=== PATIENT | female | born 1985 | race Caucasian/White ===

== ENCOUNTER 2018-05-13 11:28 | Outpatient (CLI) | payer OTHER | END 2018-05-13 12:35 | disposition home or self-care (01) | LOC: M LDO 11:28 | DX: Z34.83 Encounter for supervision of other normal pregnancy, third trimester (principal); Z3A.39 39 weeks gestation of pregnancy | CPT/HCPCS: 59025 ==

== ENCOUNTER 2018-05-24 07:36 | Inpatient (IN) | payer OTHER ==
[2018-05-24 09:10] LABS: HEMATOCRIT 37.1 % (36.0-47.0); HEMOGLOBIN 12.4 g/dl (12.0-15.5); MEAN CORPUSCULAR HEMOGLOBIN 29.1 pg (27.0-33.0); MEAN CORPUSCULAR HGB CONC 33.4 g/dl (32.0-36.5); MEAN CORPUSCULAR VOLUME 87.1 fl (80.0-96.0); PLATELET COUNT, AUTOMATED 224 10^3/uL (150-450); RED BLOOD COUNT 4.26 10^6/uL (4.00-5.40); RED CELL DISTRIBUTION WIDTH 13.3 % (11.5-14.5); WHITE BLOOD COUNT 15.2 10^3/uL (4.0-10.0)
[2018-05-24 09:17] LABS: AMPHETAMINES URINE REFLEX NEGATIVE (NEGATIVE); BARBITURATES URINE REFLEX NEGATIVE (NEGATIVE); BENZODIAZEPINES URINE REFLEX NEGATIVE (NEGATIVE); CANNABINOIDS URINE REFLEX NEGATIVE (NEGATIVE); COCAINE METABOLITE URINE REFLE NEGATIVE (NEGATIVE); METHADONE URINE REFLEX NEGATIVE (NEGATIVE); OPIATES URINE REFLEX NEGATIVE (NEGATIVE); PHENCYCLIDINE URINE REFLEX NEGATIVE (NEGATIVE)
[2018-05-24] MEDS: LR 1,000 ML IV ×3 (10:37→20:32)
[2018-05-24] MEDS: OXYTOCIN DRIP 30 UNITS in APPROPRIATE DILUENT 1 EA IV (10:42)
[2018-05-25] MEDS ORDERED: FENTANYL 2MCG/ML ROPIVACAINE 0.2% IN 0.9% NACL 100ML IVBAG As Ordered (00:22)
[2018-05-25] MEDS ORDERED: EPIDURAL COMMENT XX (02:45)
[2018-05-25] MEDS ORDERED: LACTATED RINGER'S 1000 ML IV (02:45)
[2018-05-25] MEDS ORDERED: ONDANSETRON 4MG/2ML VIAL (J2405) IV ×2 (02:45→09:30)
[2018-05-25] MEDS ORDERED: EPIDURAL/PCA KEYS XX (02:45)
[2018-05-25] MEDS ORDERED: diphenhydrAMINE INJ 50MG/ML VIAL (J1200) IV (02:45)
[2018-05-25] MEDS ORDERED: ePHEDrine SULFATE 25 MG/5 ML(5MG/ML) SYRINGE IV (02:45)
[2018-05-25] MEDS ORDERED: NALOXONE INJ 0.4 MG/1 ML VIAL (J2310) IV (02:45)
[2018-05-25] MEDS ORDERED: REFRIGERATOR IV KEYS XX (02:45)
[2018-05-25] MEDS: LR 1,000 ML IV (05:58)
[2018-05-25] MEDS: FENTANYL/ROPIVACAINE/NACL BAG 100 ML EPIDURAL (08:59)
[2018-05-25] MEDS: OXYTOCIN DRIP 30 UNITS in APPROPRIATE DILUENT 1 EA IV (09:24)
[2018-05-25] MEDS: miSOPROStol 200 MCG TAB (S0191) PR (09:30)
[2018-05-25] MEDS ORDERED: MOM 30ML SUSPENSION UDC PO (09:30)
[2018-05-25] MEDS ORDERED: DIBUCAINE 1% OINTMENT 30GM TOP (09:30)
[2018-05-25] MEDS ORDERED: METHYLERGONOVINE MALEATE 0.2 MG TAB PO (09:30)
[2018-05-25] MEDS ORDERED: DOCUSATE SODIUM 100 MG CAP PO (09:30)
[2018-05-25] MEDS ORDERED: MEASLES,MUMPS,RUBELLA VACCINE INJ (MMR-II) (90707) SC (09:30)
[2018-05-25] MEDS: OXYTOCIN INJ 10 UNITS/ML VIAL (J2590) IV (09:30)
[2018-05-25] MEDS ORDERED: ceFAZolin 2 GM/D5W 50 ML IV BAG (J0690 PER 500MG) As Ordered (09:47)
[2018-05-25] MEDS: IBUPROFEN 800 MG TAB PO (20:51)
[2018-05-26 07:05] LABS: HEMATOCRIT 28.7 % (36.0-47.0); MEAN CORPUSCULAR HEMOGLOBIN 29.6 pg (27.0-33.0); MEAN CORPUSCULAR HGB CONC 33.4 g/dl (32.0-36.5); MEAN CORPUSCULAR VOLUME 88.6 fl (80.0-96.0); PLATELET COUNT, AUTOMATED 195 10^3/uL (150-450); RED BLOOD COUNT 3.24 10^6/uL (4.00-5.40); RED CELL DISTRIBUTION WIDTH 13.7 % (11.5-14.5); WHITE BLOOD COUNT 20.2 10^3/uL (4.0-10.0)
[2018-05-26 07:08] LABS: HEMOGLOBIN 9.6 g/dl (12.0-15.5)
[2018-05-26] MEDS: ACETAMINOPHEN 500 MG TAB PO (08:22)
[2018-05-26] MEDS: PRENATAL VITAMINS CHEWABLE TABLET PO (08:22)
== END 2018-05-26 18:17 | disposition home or self-care (01) | DRG 807 ==
LOC: M LDI 07:36 → M OBS 05-25 12:23
PROVIDERS: Midwife
PROC: 10D17Z9 Manual Extraction of Products of Conception, Retained, Via Natural or Artificial Opening (ICD-10-PCS; 2018-05-25 09:55)
PROC: 10E0XZZ Delivery of Products of Conception, External Approach (ICD-10-PCS; principal; 2018-05-25 10:32)
PROC: 3E033VJ Introduction of Other Hormone into Peripheral Vein, Percutaneous Approach (ICD-10-PCS; 2018-05-25 10:32)
PROC: 10907ZC Drainage of Amniotic Fluid, Therapeutic from Products of Conception, Via Natural or Artificial Opening (ICD-10-PCS; 2018-05-25 10:32)
DX: O48.0 Post-term pregnancy (principal); Z37.0 Single live birth; Z3A.41 41 weeks gestation of pregnancy; O73.0 Retained placenta without hemorrhage

== ENCOUNTER → 2018-05-24 | Outpatient (CLI) | payer OTHER ==
[~2018-05-24] MED LIST: CETI5TA PO; COLA100C5 PO; DIBU1OIN TOP; IBUP-1114 PO; LIDOCAINE PRES-FREE 2% 10ML AMP As Ordered ONE; LR 1,000 ML IV SCH; MAPA500T17 PO; MIDAZOLAM INJ 5 MG/ML VIAL (J2250) As Ordered ONE; ONDANSETRON 4MG/2ML VIAL (J2405) As Ordered ONE; ONDANSETRON 4MG/2ML VIAL (J2405) IV PRN; OXYTOCIN 30 UNITS IN 0.9% NaCl 500ML IV BAG (J2590) As Ordered ONE; OXYTOCIN INJ 10 UNITS/ML VIAL (J2590) As Ordered ONE; PRENTAB9 PO; ZANTTAB PO; fentaNYL 100 MCG/2 ML INJECTION (J3010) As Ordered ONE; fentaNYL 100 MCG/2 ML INJECTION (J3010) IV PRN; fentaNYL 250 MCG/5 ML INJECTION (J3010) As Ordered ONE
== END ==
LOC: M LDO 08:00
PROVIDERS: ATTEND Nurse Practitioner Women's Health
DX: Z53.20 Procedure and treatment not carried out because of patient's decision for unspecified reasons (principal)